=== PATIENT | male | born 1960 | race Caucasian/White ===

== ENCOUNTER 2018-09-01 10:32 | Day surgery (SDC) | payer OTHER ==
[~2018-09-01] VITALS: Ht 182.9 cm; Wt 92.4 kg
[~2018-09-01 10:32] MED LIST: ACETAMINOPHEN 500 MG TABLET PO ONE; BUPIVACAINE/PF-EPI 0.5% 1:200K ONE; DIAZEPAM 5 MG TABLET PO ONE; GABAPENTIN 300 MG CAPSULE PO ONE; None per pt
[2018-09-01] MEDS ORDERED: MIDAZOLAM 1 MG/ML, 2ML ONE (11:14)
[2018-09-01] MEDS ORDERED: FENTANYL PF 250 MCG/5ML ONE (11:14)
[2018-09-01] MEDS ORDERED: LACTATED RINGERS 1,000 ML IV SCH (11:15)
[2018-09-01 11:37] VITALS: BP 108/69
[2018-09-01] MEDS ORDERED: KETOROLAC 30 MG/1 ML ONE (11:53)
[2018-09-01] MEDS ORDERED: DEXAMETHASONE 4 MG/ML, 1ML ONE (11:53)
[2018-09-01] MEDS ORDERED: PROPOFOL 10 MG/ML, 20ML ONE (12:22)
[2018-09-01] MEDS ORDERED: NEOSTIGMINE 1 MG/ML, 10ML ONE (12:22)
[2018-09-01] MEDS ORDERED: ONDANSETRON 2MG/ML, 2ML ONE (12:22)
[2018-09-01] MEDS ORDERED: ROCURONIUM 10MG/ML,5ML ONE (12:22)
[2018-09-01] MEDS ORDERED: GLYCOPYRROLATE 0.2MG/1ML, 5ML ONE (12:22)
[2018-09-01] MEDS ORDERED: CEFAZOLIN 1,000 MG ONE (12:22)
[2018-09-01] MEDS ORDERED: SUCCINYLCHOLINE 20 MG/ML, 10ML ONE (12:22)
[2018-09-01] MEDS ORDERED: PROMETHAZINE 25 MG/ML, 1ML IV PRN (12:30)
[2018-09-01] MEDS ORDERED: OXYcodone 5 MG/5 ML ORAL.SOL UDC PO PRN (12:30)
[2018-09-01] MEDS ORDERED: DIAZEPAM 5 MG/ML, 2ML IVPush PRN (12:30)
[2018-09-01] MEDS ORDERED: ALBUTEROL/IPRATROPIUM 2.5MG/0.5MG, 3 ML NPPB PRN (12:30)
[2018-09-01] MEDS ORDERED: SCOPOLAMINE PATCH, 1.5MG PATCH.TD72 TD PRN (12:30)
[2018-09-01] MEDS ORDERED: ONDANSETRON 2MG/ML, 2ML IV PRN (12:30)
[2018-09-01] MEDS ORDERED: MEPERIDINE/PF 25MG/0.5ML IVPush PRN (12:30)
[2018-09-01] MEDS ORDERED: MIDAZOLAM 1 MG/ML, 2ML IV PRN (12:30)
[2018-09-01] MEDS ORDERED: hydrALAzine 20 MG/ML, 1ML IV PRN (12:30)
[2018-09-01] MEDS ORDERED: LABETALOL 5MG/ML, 20ML IV PRN (12:30)
[2018-09-01] MEDS ORDERED: FENTANYL PF 100 MCG/2ML ONE ×2 (13:15→13:36)
[2018-09-01] MEDS ORDERED: OXYcodone 5 MG/5 ML ORAL.SOL UDC ONE (13:16)
[2018-09-01] MEDS: FENTANYL PF 100 MCG/2ML IV PRN ×4 (13:19→13:49)
[2018-09-01] MEDS ORDERED: HYDROmorphone 1 MG/ML, 1ML ONE ×2 (13:28→13:41)
[2018-09-01] MEDS: HYDROmorphone 2 MG/ML, 1ML IVPush PRN ×4 (13:30→13:59)
== END 2018-09-01 17:35 | disposition home or self-care (01) ==
LOC: OUT 10:32
PROVIDERS: ATTEND Surgery
DX: K42.9 Umbilical hernia without obstruction or gangrene (principal); K40.90 Unilateral inguinal hernia, without obstruction or gangrene, not specified as recurrent; G47.33 Obstructive sleep apnea (adult) (pediatric); Z91.09 Other allergy status, other than to drugs and biological substances; Z98.890 Other specified postprocedural states; Z72.89 Other problems related to lifestyle
CPT/HCPCS: 49585; 49650; C1781; J0330; J0690; J1100; J1170; J1885; J2250; J2405; J2704; J2710; J3010; J3490; J7120